=== PATIENT | male | born 2000 | race American Indian/Alaskan Native ===

== ENCOUNTER 2025-08-27 12:12 | Emergency (ER) | payer OTHER, SELFPAY ==
[2025-08-27 12:19] VITALS: BP 152/95; PULSE 85; RESP 18; TEMP 36.7; O2SAT 97
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
[2025-08-27 15:07] VITALS: BP 136/80; PULSE 78; RESP 16; O2SAT 99
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
== END 2025-08-27 15:09 | disposition home or self-care (01) ==
LOC: ANHED 14:57
PROVIDERS: Emergency Provider Physician Assistant
DX: S42.002A Fracture of unspecified part of left clavicle, initial encounter for closed fracture (principal); V89.2XXA Person injured in unspecified motor-vehicle accident, traffic, initial encounter
CPT/HCPCS: 99283